=== PATIENT | male | born 1940 | race Caucasian/White ===

== ENCOUNTER 2016-08-31 22:46 | Observation (INO) | payer MEDICARE ==
[2016-09-01 01:15] LABS: HEMOGLOBIN 12.5 gm/dl (14.0-17.5); RED BLOOD COUNT 4.11 M/UL (4.20-5.50); WHITE BLOOD COUNT 9.7 K/UL (4.5-11.0)
[2016-09-01] MEDS ORDERED: URECHOLINE25 MG PO (09:54)
[2016-09-01] MEDS ORDERED: LOPRESSOR50 MG PO (09:54)
[2016-09-01] MEDS ORDERED: TRAZODONE HCL50 MG PO (09:54)
[2016-09-01] MEDS ORDERED: BACTRIM DS TAB1 EACH PO (09:55)
[2016-09-02 06:09] LABS: HEMOGLOBIN 11.9 gm/dl (14.0-17.5); RED BLOOD COUNT 3.89 M/UL (4.20-5.50)
[2016-09-02 06:14] LABS: WHITE BLOOD COUNT 7.2 K/UL (4.5-11.0)
[2016-09-02] MEDS ORDERED: ASPIRIN81 MG PO (10:58)
[2016-09-02] MEDS ORDERED: LIPITOR TAB 2020 MG PO (10:58)
[2016-09-02] MEDS ORDERED: ISOSORBIDE MONO30 MG PO (10:59)
[2016-09-02] MEDS ORDERED: METOPROLOL SUCC50 MG PO (11:00)
== END 2016-09-02 11:37 | disposition home or self-care (01) ==
LOC: ER1 22:46 → ZEROF 09-01 08:46 → M/S 09-01 18:40
PROVIDERS: Emergency Medicine; ADMIT Internal Medicine
DX: R07.9 Chest pain, unspecified (principal); I12.9 Hypertensive chronic kidney disease with stage 1 through stage 4 chronic kidney disease, or unspecified chronic kidney disease; N18.3 Chronic kidney disease, stage 3 (moderate); D64.9 Anemia, unspecified; E78.5 Hyperlipidemia, unspecified; Z86.73 Personal history of transient ischemic attack (TIA), and cerebral infarction without residual deficits; Z87.891 Personal history of nicotine dependence; Z83.3 Family history of diabetes mellitus; Z79.82 Long term (current) use of aspirin; Z79.899 Other long term (current) drug therapy; Z95.810 Presence of automatic (implantable) cardiac defibrillator; Z98.890 Other specified postprocedural states
CPT/HCPCS: ECHO; 36415; 70450; 71010; 78452; 80048; 80053; 80061; 81001; 82550; 82553; 83690; 83735; 83874; 83880; 84484; 85025; 85027; 87086; 93005; 93017; 93306; 96361; 96374; 96375; 99285; A9502; G0378; J1940; J2405; J2785

== ENCOUNTER 2016-11-15 12:06 | Inpatient (IN) | payer MEDICARE ==
[~2016-11-15] VITALS: Ht 195.6 cm; Wt 81.9 kg
[~2016-11-15 12:06] MED LIST: ASPIRIN81 MG PO; BACTRIM DS TAB1 EACH PO; ISOSORBIDE MONO30 MG PO; LIPITOR TAB 2020 MG PO; LOPRESSOR50 MG PO; METOPROLOL SUCC50 MG PO; TRAZODONE HCL50 MG PO; URECHOLINE25 MG PO
[2016-11-15 12:47] LABS: RED BLOOD COUNT 4.61 M/UL (4.20-5.50); WHITE BLOOD COUNT 12.2 K/UL (4.5-11.0)
[2016-11-16] MEDS ORDERED: BACTRIM DS TAB1 EACH PO (01:16)
[2016-11-16] MEDS ORDERED: ISORDIL TAB 3030 MG PO (01:16)
[2016-11-16] MEDS ORDERED: ZANTAC150 MG PO (01:17)
[2016-11-16] MEDS ORDERED: TRAZODONE HCL50 MG PO (01:17)
[2016-11-16] MEDS ORDERED: URECHOLINE25 MG PO (01:17)
[2016-11-16] MEDS ORDERED: CYMBALTA 30 MG30 MG PO (01:17)
[2016-11-16] MEDS ORDERED: LOPRESSOR 50 MG50 MG PO (01:18)
[2016-11-16] MEDS ORDERED: LIPITOR TAB 2020 MG PO (01:18)
[2016-11-16 05:41] LABS: WHITE BLOOD COUNT 11.7 K/UL (4.5-11.0)
[2016-11-16 05:45] LABS: HEMOGLOBIN 11.2 gm/dl (14.0-17.5); RED BLOOD COUNT 3.74 M/UL (4.20-5.50)
--- NOTE | 2016-11-17 19:04 | NUR ---
ANDREW PRIETO RN FOR TRANSFER TO ROOM [id number]
[2016-11-19 06:00] LABS: HEMOGLOBIN 10.6 gm/dl (14.0-17.5); RED BLOOD COUNT 3.54 M/UL (4.20-5.50)
[2016-11-19 06:04] LABS: WHITE BLOOD COUNT 6.2 K/UL (4.5-11.0)
[2016-11-19 06:25] LABS: BUN/CREATININE RATIO 10 (0-10)
[2016-11-19] MEDS ORDERED: ASPIR 8181 MG PO (18:51)
[2016-11-19] MEDS ORDERED: LOPRESSOR 25 MG25 MG PO (18:53)
[2016-11-19] MEDS ORDERED: IPRAT-ALBUT 0.5-3 ML INH (18:55)
[2016-11-19] MEDS ORDERED: SPIRIVA HANDIH18 MCG INH (18:56)
[2016-11-19] MEDS ORDERED: AUGMENTIN TAB875 MG PO (19:10)
== END 2016-11-19 19:40 | disposition home or self-care (01) | DRG 189 ==
LOC: ER1 12:06 → ZEROF 21:26 → PROG CARE 21:26 → MED SURG 4 11-17 19:54
PROVIDERS: Family Medicine; Hospitalist; ADMIT Internal Medicine
DX: J96.21 Acute and chronic respiratory failure with hypoxia (principal); J15.0 Pneumonia due to Klebsiella pneumoniae; G93.49 Other encephalopathy; J44.0 Chronic obstructive pulmonary disease with (acute) lower respiratory infection; I13.0 Hypertensive heart and chronic kidney disease with heart failure and stage 1 through stage 4 chronic kidney disease, or unspecified chronic kidney disease; I50.22 Chronic systolic (congestive) heart failure; E87.2 Acidosis; J20.9 Acute bronchitis, unspecified; N18.3 Chronic kidney disease, stage 3 (moderate); I25.5 Ischemic cardiomyopathy; I25.10 Atherosclerotic heart disease of native coronary artery without angina pectoris; E78.5 Hyperlipidemia, unspecified; I73.9 Peripheral vascular disease, unspecified; K21.9 Gastro-esophageal reflux disease without esophagitis; R55 Syncope and collapse; R07.9 Chest pain, unspecified; N40.0 Benign prostatic hyperplasia without lower urinary tract symptoms; G89.29 Other chronic pain; M79.662 Pain in left lower leg; R63.4 Abnormal weight loss; R26.9 Unspecified abnormalities of gait and mobility; G47.00 Insomnia, unspecified; Z95.1 Presence of aortocoronary bypass graft; Z95.5 Presence of coronary angioplasty implant and graft; Z95.810 Presence of automatic (implantable) cardiac defibrillator; Z87.891 Personal history of nicotine dependence; Z68.21 Body mass index [BMI] 21.0-21.9, adult; Z86.73 Personal history of transient ischemic attack (TIA), and cerebral infarction without residual deficits; Z99.81 Dependence on supplemental oxygen; Z79.899 Other long term (current) drug therapy; Z98.49 Cataract extraction status, unspecified eye; Z98.890 Other specified postprocedural states; Z83.3 Family history of diabetes mellitus; Z82.49 Family history of ischemic heart disease and other diseases of the circulatory system
CPT/HCPCS: 36415; 36600; 70450; 71010; 71020; 80048; 80053; 81001; 82550; 82553; 82803; 83605; 83690; 83874; 84439; 84443; 84484; 85025; 85027; 85379; 85610; 85730; 87040; 87070; 87077; 87086; 87186; 87205; 93005; 93970; 94640; 94664; 96365; 96375; 96376; 99285; J0696; J1650; J1940; J2405; J2930; J7030; J7050; Q9963